=== PATIENT | male | born 1990 ===

== ENCOUNTER 2017-12-27 19:31 | Emergency (ER) | payer MEDICAID ==
[~2017-12-27] VITALS: Ht 177.8 cm; Wt 80.7 kg
[2017-12-27 19:49] VITALS: Ht 177.8 cm; Wt 80.7 kg
[2017-12-27 23:18] VITALS: BP 135/72
== END 2017-12-27 23:18 | disposition home or self-care (01) ==
LOC: ED 19:31
DX: T16.2XXA Foreign body in left ear, initial encounter (principal); X58.XXXA Exposure to other specified factors, initial encounter; Y93.89 Activity, other specified; Y99.8 Other external cause status; Y92.89 Other specified places as the place of occurrence of the external cause
CPT/HCPCS: J1885